=== PATIENT | female | born 1970 | race Hispanic/Latino ===

== ENCOUNTER 2020-03-20 08:56 | Inpatient (IN) | payer OTHER, SELFPAY ==
[~2020-03-20] VITALS: Ht 152.4 cm; Wt 73.5 kg
[2020-03-20 10:10] LABS: BASOPHILS % (AUTO) 0.4 % (0.0-5.0); EOSINOPHILS % (AUTO) 1.9 % (0.0-8.0); HEMATOCRIT 44.7 % (36-48); LYMPHOCYTES % (AUTO) 23.4 % (21.0-51.0); MEAN CORPUSCULAR HEMOGLOBIN 29.1 pg (27.0-33.0); MEAN CORPUSCULAR HGB CONC 32.9 g/dL (32.0-36.0); MEAN CORPUSCULAR VOLUME 88.5 fL (79-99); MONOCYTES % (AUTO) 6.9 % (3.0-13.0); NEUTROPHILS % (AUTO) 66.5 % (40.0-77.0); PLATELET COUNT (AUTO) 206 K/uL (130-400); RED BLOOD CELL COUNT(AUTO) 5.05 MIL/uL (4.00-5.50); RED CELL DISTRIBUTION WIDTH 13.2 % (11.0-15.5); WHITE BLOOD COUNT (AUTO) 4.7 K/uL (4.8-10.8)
[2020-03-20 10:20] LABS: CREATININE 0.6 mg/dL (0.5-1.5); POTASSIUM 3.7 mmol/L (3.5-5.1)
[2020-03-20 10:25] LABS: ALBUMIN 3.9 g/dL (3.5-5.0); BILIRUBIN,TOTAL 0.7 mg/dL (0.2-1.0); TOTAL PROTEIN, SERUM 7.9 g/dL (6.0-8.3)
[2020-03-20] MEDS ORDERED: AZITHROMYCIN 500MG+NS 250ML 250 ML IV ONE (12:06)
[2020-03-20] MEDS ORDERED: CEFTRIAXONE SODIUM 1 GM ONE (12:06)
[2020-03-20] MEDS ORDERED: ALBUTEROL INHALER 90MCG/INH IH ONE (12:06)
[2020-03-20] MEDS ORDERED: DEXAMETHASONE SOD PHOSPHATE 10MG/ML 1ML VIAL ONE (12:06)
[2020-03-20] MEDS ORDERED: NITROGLYCERIN 0.4 MG SL TAB SL PRN (20:30)
[2020-03-20] MEDS ORDERED: ALBUTEROL INHALER 90MCG/INH IH PRN (20:30)
[2020-03-20] MEDS ORDERED: ONDANSETRON HCL 4 MG/2 ML VIAL IV PRN (20:30)
[2020-03-20] MEDS ORDERED: DIPHENHYDRAMINE HCL 25 MG CAPSULE PO PRN (20:30)
[2020-03-20] MEDS ORDERED: ACETAMINOPHEN 325 MG TAB PO PRN ×2 (20:30)
[2020-03-20] MEDS: ASPIRIN 325MG EC TAB 325 MG TABLET.DR PO SCH (20:45)
[2020-03-20] MEDS: FAMOTIDINE 20MG TAB 20 MG TAB PO SCH (21:00)
[2020-03-20 22:02] LABS: CREATINE KINASE, TOTAL 67 U/L (21-232); LACTATE DEHYDROGENASE 268 U/L (81-234); MYOGLOBIN 25 ng/mL (10-92); TROPONIN I < 0.04 ng/mL (0.00-0.06)
[2020-03-20] MEDS ORDERED: ERGOCALCIFEROL (VITAMIN D2) 50,000 UNIT CAPSULE PO ONE (22:15)
[2020-03-20] MEDS ORDERED: ASCORBIC ACID 500 MG TAB ONE (22:18)
[2020-03-20] MEDS ORDERED: ASPIRIN 325 MG TABLET ONE (22:19)
[2020-03-20] MEDS ORDERED: ERGOCALCIFEROL (VITAMIN D2) 50,000 UNIT CAPSULE ONE (22:19)
[2020-03-20] MEDS ORDERED: ZINC SULFATE 220 CAPSULE ONE (22:19)
[2020-03-20] MEDS ORDERED: FAMOTIDINE 20MG TAB 20 MG TAB ONE (22:19)
[2020-03-20] MEDS ORDERED: ENOXAPARIN SODIUM 40 MG/0.4 ML SYRINGE SQ ONE (22:20)
[2020-03-21] MEDS ORDERED: NITROGLYCERIN 0.4 MG SL TAB SL ONE (04:02)
[2020-03-21 04:16] LABS: BASOPHILS % (AUTO) 0.3 % (0.0-5.0); HEMATOCRIT 41.3 % (36-48); LYMPHOCYTES % (AUTO) 23.5 % (21.0-51.0); MEAN CORPUSCULAR HGB CONC 33.2 g/dL (32.0-36.0); MEAN CORPUSCULAR VOLUME 87.3 fL (79-99); MONOCYTES % (AUTO) 7.3 % (3.0-13.0); NEUTROPHILS % (AUTO) 68.3 % (40.0-77.0); PLATELET COUNT (AUTO) 225 K/uL (130-400); RED BLOOD CELL COUNT(AUTO) 4.73 MIL/uL (4.00-5.50); RED CELL DISTRIBUTION WIDTH 13.1 % (11.0-15.5); WHITE BLOOD COUNT (AUTO) 3.6 K/uL (4.8-10.8)
[2020-03-21 04:39] LABS: ALANINE AMINOTRANSFERASE 76 U/L (12-78); ALBUMIN 3.3 g/dL (3.5-5.0); ASPARTATE AMINOTRANSFERASE 52 U/L (10-37); BILIRUBIN,TOTAL 0.3 mg/dL (0.2-1.0); CARBON DIOXIDE 24 mmol/L (21-32); CHLORIDE 105 mmol/L (101-111); CHOLESTEROL 133 mg/dL (<200); GLUCOSE,RANDOM 116 mg/dL (70-105); HCG,QUANTITATIVE 0 mIU/mL (0-5); HDL CHOLESTEROL 26 mg/dL (35-85); LACTATE DEHYDROGENASE 223 U/L (81-234); LDL DIRECT 81 mg/dL (0-99); POTASSIUM 3.8 mmol/L (3.5-5.1); SODIUM SERUM 139 mmol/L (136-145); TOTAL PROTEIN, SERUM 7.3 g/dL (6.0-8.3); TRIGLYCERIDES 170 mg/dL (30-200); UREA NITROGEN, BLOOD 11 mg/dL (7-18)
[2020-03-21 04:48] LABS: CREATININE 0.5 mg/dL (0.5-1.5); GLOMERULAR FILTR. RATE CALC 140 mL/min (>60)
[2020-03-21 05:21] LABS: CREATINE KINASE, TOTAL 75 U/L (21-232); MYOGLOBIN 26 ng/mL (10-92); TROPONIN I < 0.04 ng/mL (0.00-0.06)
[2020-03-21] MEDS ORDERED: ENOXAPARIN SODIUM 40 MG/0.4 ML SYRINGE SQ ONE (07:59)
[2020-03-21] MEDS ORDERED: ASPIRIN 325 MG TABLET ONE (07:59)
[2020-03-21] MEDS ORDERED: ZINC SULFATE 220 CAPSULE ONE (07:59)
[2020-03-21] MEDS ORDERED: ASCORBIC ACID 500 MG TAB ONE (07:59)
[2020-03-21] MEDS ORDERED: AZITHROMYCIN 500MG+NS 250ML 250 ML IV ONE (08:00)
[2020-03-21] MEDS ORDERED: FAMOTIDINE/PF 20 MG/2 ML VIAL IV ONE (08:00)
[2020-03-21] MEDS ORDERED: CEFTRIAXONE SODIUM 1 GM ONE (08:00)
[2020-03-21] MEDS: FAMOTIDINE 20MG TAB 20 MG TAB PO SCH ×2 (09:00→21:00)
[2020-03-21] MEDS: ENOXAPARIN SODIUM 40 MG/0.4 ML SYRINGE SQ SCH (09:00)
[2020-03-21] MEDS: CEFTRIAXONE SODIUM 1 GM IV SCH (09:00)
[2020-03-21] MEDS: ASCORBIC ACID 500 MG TAB PO SCH (09:00)
[2020-03-21] MEDS: ASPIRIN 325MG EC TAB 325 MG TABLET.DR PO SCH (09:00)
[2020-03-21] MEDS: AZITHROMYCIN 500MG+NS 250ML 250 ML IV SCH (09:00)
[2020-03-21] MEDS: ZINC SULFATE 220 CAPSULE PO SCH (09:00)
[2020-03-21] MEDS: METHYLPREDNISOLONE SOD SUCC 40MG/ML 1ML IVP SCH ×2 (12:15→20:15)
[2020-03-21 12:20] LABS: CREATINE KINASE, TOTAL 83 U/L (21-232); MYOGLOBIN 47 ng/mL (10-92); TROPONIN I < 0.04 ng/mL (0.00-0.06)
[2020-03-21] MEDS ORDERED: METHYLPREDNISOLONE SOD SUCC 40MG/ML 1ML ONE ×2 (18:09→21:22)
--- NOTE | 2020-03-21 19:47 | NUR ---
CALL TO SPOUSE FOR DC PLANNING PATIENT LIVES W [place], IS ACTIVE AND INDEPENDENT, HAS HAD RECENT DECLINE IN FUNCTION- NO DME OR SHOWER CHAIR, DOES NOT DIRVE, GOES TO [facility] FOR ALL MEDS AND APPOINTMENTS, PATIENT IS UNINSURED/UNDOCUMENTED DCP HARSHA CHOI TO FOLLOW Addendum: 03/21/20 at 1950 by ALEJANDRO CHRISTIANSEN RN CM Amended: Links added.
[2020-03-21] MEDS ORDERED: FAMOTIDINE 20MG TAB 20 MG TAB ONE (21:22)
[2020-03-22] MEDS: METHYLPREDNISOLONE SOD SUCC 40MG/ML 1ML IVP SCH ×3 (04:15→20:15)
[2020-03-22] MEDS ORDERED: METHYLPREDNISOLONE SOD SUCC 40MG/ML 1ML ONE ×3 (04:29→20:07)
[2020-03-22 05:21] LABS: BASOPHILS % (AUTO) 0.1 % (0.0-5.0); HEMATOCRIT 42.3 % (36-48); LYMPHOCYTES % (AUTO) 12.6 % (21.0-51.0); MEAN CORPUSCULAR HEMOGLOBIN 28.8 pg (27.0-33.0); MEAN CORPUSCULAR HGB CONC 32.6 g/dL (32.0-36.0); MEAN CORPUSCULAR VOLUME 88.3 fL (79-99); MONOCYTES % (AUTO) 1.6 % (3.0-13.0); NEUTROPHILS % (AUTO) 85.3 % (40.0-77.0); PLATELET COUNT (AUTO) 229 K/uL (130-400); RED BLOOD CELL COUNT(AUTO) 4.79 MIL/uL (4.00-5.50); WHITE BLOOD COUNT (AUTO) 6.8 K/uL (4.8-10.8)
[2020-03-22 05:51] LABS: ALANINE AMINOTRANSFERASE 89 U/L (12-78); ALBUMIN 3.4 g/dL (3.5-5.0); ASPARTATE AMINOTRANSFERASE 56 U/L (10-37); BILIRUBIN,TOTAL 0.3 mg/dL (0.2-1.0); CARBON DIOXIDE 28 mmol/L (21-32); CHLORIDE 103 mmol/L (101-111); CREATININE 0.6 mg/dL (0.5-1.5); GLOMERULAR FILTR. RATE CALC 113 mL/min (>60); GLUCOSE,RANDOM 149 mg/dL (70-105); LACTATE DEHYDROGENASE 204 U/L (81-234); POTASSIUM 3.8 mmol/L (3.5-5.1); SODIUM SERUM 138 mmol/L (136-145); TOTAL PROTEIN, SERUM 7.6 g/dL (6.0-8.3); UREA NITROGEN, BLOOD 18 mg/dL (7-18)
[2020-03-22] MEDS ORDERED: AZITHROMYCIN 500MG+NS 250ML 250 ML IV ONE (08:35)
[2020-03-22] MEDS ORDERED: ASPIRIN 81MG TAB.CHEW ONE (08:35)
[2020-03-22] MEDS ORDERED: ASCORBIC ACID 500 MG TAB ONE (08:35)
[2020-03-22] MEDS ORDERED: ZINC SULFATE 220 CAPSULE ONE (08:35)
[2020-03-22] MEDS ORDERED: ENOXAPARIN SODIUM 40 MG/0.4 ML SYRINGE SQ ONE (08:35)
[2020-03-22] MEDS ORDERED: CEFTRIAXONE SODIUM 1 GM ONE (08:36)
[2020-03-22] MEDS ORDERED: FAMOTIDINE/PF 20 MG/2 ML VIAL IV ONE (08:36)
[2020-03-22] MEDS: ZINC SULFATE 220 CAPSULE PO SCH (09:00)
[2020-03-22] MEDS: ASPIRIN 325MG EC TAB 325 MG TABLET.DR PO SCH (09:00)
[2020-03-22] MEDS: AZITHROMYCIN 500MG+NS 250ML 250 ML IV SCH (09:00)
[2020-03-22] MEDS: ASCORBIC ACID 500 MG TAB PO SCH (09:00)
[2020-03-22] MEDS: CEFTRIAXONE SODIUM 1 GM IV SCH (09:00)
[2020-03-22] MEDS: FAMOTIDINE 20MG TAB 20 MG TAB PO SCH ×2 (09:00→21:00)
[2020-03-22] MEDS: ENOXAPARIN SODIUM 40 MG/0.4 ML SYRINGE SQ SCH (09:00)
[2020-03-22] MEDS ORDERED: FAMOTIDINE 20MG TAB 20 MG TAB ONE (20:08)
[2020-03-23] MEDS ORDERED: METHYLPREDNISOLONE SOD SUCC 40MG/ML 1ML ONE ×2 (03:36→12:07)
[2020-03-23] MEDS: METHYLPREDNISOLONE SOD SUCC 40MG/ML 1ML IVP SCH ×2 (04:15→12:15)
[2020-03-23 05:05] LABS: BASOPHILS % (AUTO) 0.1 % (0.0-5.0); HEMATOCRIT 41.6 % (36-48); LYMPHOCYTES % (AUTO) 11.5 % (21.0-51.0); MEAN CORPUSCULAR HGB CONC 33.2 g/dL (32.0-36.0); MEAN CORPUSCULAR VOLUME 87.4 fL (79-99); MONOCYTES % (AUTO) 5.2 % (3.0-13.0); NEUTROPHILS % (AUTO) 82.6 % (40.0-77.0); PLATELET COUNT (AUTO) 261 K/uL (130-400); RED BLOOD CELL COUNT(AUTO) 4.76 MIL/uL (4.00-5.50); RED CELL DISTRIBUTION WIDTH 12.9 % (11.0-15.5); WHITE BLOOD COUNT (AUTO) 9.8 K/uL (4.8-10.8)
[2020-03-23 05:16] LABS: ALANINE AMINOTRANSFERASE 71 U/L (12-78); ALBUMIN 3.3 g/dL (3.5-5.0); ASPARTATE AMINOTRANSFERASE 36 U/L (10-37); BILIRUBIN,TOTAL 0.2 mg/dL (0.2-1.0); CARBON DIOXIDE 27 mmol/L (21-32); CHLORIDE 103 mmol/L (101-111); CREATININE 0.6 mg/dL (0.5-1.5); GLOMERULAR FILTR. RATE CALC 113 mL/min (>60); GLUCOSE,RANDOM 155 mg/dL (70-105); LACTATE DEHYDROGENASE 171 U/L (81-234); SODIUM SERUM 139 mmol/L (136-145); TOTAL PROTEIN, SERUM 6.8 g/dL (6.0-8.3); UREA NITROGEN, BLOOD 17 mg/dL (7-18)
[2020-03-23 05:42] LABS: CRP QUANTITATIVE < 2.00 mg/L (0.00-9.0)
[2020-03-23] MEDS ORDERED: ASCORBIC ACID 500 MG TAB ONE (09:39)
[2020-03-23] MEDS ORDERED: FAMOTIDINE 20MG TAB 20 MG TAB ONE (09:39)
[2020-03-23] MEDS ORDERED: ENOXAPARIN SODIUM 40 MG/0.4 ML SYRINGE SQ ONE (09:40)
[2020-03-23] MEDS ORDERED: ZINC SULFATE 220 CAPSULE ONE (09:40)
[2020-03-23] MEDS ORDERED: ASPIRIN 325 MG TABLET ONE (09:40)
[2020-03-23] MEDS ORDERED: AZITHROMYCIN 500MG+NS 250ML 250 ML IV ONE (09:41)
[2020-03-23] MEDS ORDERED: CEFTRIAXONE SODIUM 1 GM ONE (09:41)
[2020-03-23] MEDS: CEFTRIAXONE SODIUM 1 GM IV SCH (10:01)
[2020-03-23] MEDS: FAMOTIDINE 20MG TAB 20 MG TAB PO SCH (10:01)
[2020-03-23] MEDS: ASCORBIC ACID 500 MG TAB PO SCH (10:01)
[2020-03-23] MEDS: AZITHROMYCIN 500MG+NS 250ML 250 ML IV SCH (10:01)
[2020-03-23] MEDS: ASPIRIN 325MG EC TAB 325 MG TABLET.DR PO SCH (10:01)
[2020-03-23] MEDS: ZINC SULFATE 220 CAPSULE PO SCH (10:01)
[2020-03-23] MEDS: ENOXAPARIN SODIUM 40 MG/0.4 ML SYRINGE SQ SCH (10:02)
[2020-03-23] MEDS ORDERED: AZIT500T4 PO (12:39)
[2020-03-23] MEDS ORDERED: DEXA6TAB7 PO (12:39)
[2020-03-23] MEDS ORDERED: ZINC220C6 PO (12:39)
[2020-03-23] MEDS ORDERED: ASCO500T20 PO (12:39)
--- NOTE | 2020-03-23 14:31 | NUR ---
PATIENT DISCHARGE PATIENT DISCHARGE, IV DISCONTINUED, CATHLON INTACT BLEEDING CONTROLLED. PATIENT TOLERATED WITHOUT INCIDENT. PATIENT CURRENTLY WAITING FOR HER TO ARRIVE FOR TRANSPORTATION HOME.
== END 2020-03-23 15:37 | disposition home or self-care (01) | DRG 177 ==
LOC: EDH 08:56 → EDHIP 08:57
PROVIDERS: ADMIT Internal Medicine; ATTEND Internal Medicine
DX: U07.1 COVID-19 (principal); J12.89 Other viral pneumonia; J96.01 Acute respiratory failure with hypoxia; E66.9 Obesity, unspecified; Z68.31 Body mass index [BMI] 31.0-31.9, adult
CPT/HCPCS: 36415; 71045; 80053; 80061; 82550; 82728; 83605; 83615; 83735; 83874; 84145; 84484; 84702; 85025; 85378; 86140; 87040; 93005; 99291; G0378; J0456; J0696; J1100; J1650; J2920; J3490; U0003

== ENCOUNTER 2022-12-27 12:26 | Emergency (ER) | payer OTHER ==
[~2022-12-27] VITALS: Ht 152.4 cm; Wt 65.8 kg
[~2022-12-27 12:26] MED LIST: ASCO500T20 PO; AZIT500T4 PO; DEXA6TAB7 PO; ZINC220C6 PO
[2022-12-27] MEDS ORDERED: HYDR-4060 PO (12:46)
[2022-12-27] MEDS ORDERED: CLIN-141 PO (12:46)
[2022-12-27] MEDS ORDERED: SOLU-MEDROL 125MG VIAL IM ONE (13:00)
[2022-12-27] MEDS ORDERED: HYDROCODONE/ACETAMINOPHEN 5/325 MG TAB PO ONE (13:00)
[2022-12-27] MEDS ORDERED: CEFTRIAXONE 1G VIAL IM ONE (13:00)
[2022-12-27 13:13] VITALS: BP 114/76
== END 2022-12-27 13:15 | disposition home or self-care (01) ==
LOC: EDH 12:26
DX: K04.7 Periapical abscess without sinus (principal); I10 Essential (primary) hypertension; E11.9 Type 2 diabetes mellitus without complications; Z79.899 Other long term (current) drug therapy
CPT/HCPCS: 99284; 96372 ×2; J2930; J0696